=== PATIENT | male | born 1975 | race Caucasian/White ===

== ENCOUNTER 2021-11-25 07:44 | Day surgery (SDC) | payer BC ==
[~2021-11-25] VITALS: Ht 177.8 cm; Wt 93.3 kg
[2021-11-25] MEDS ORDERED: METF500 (08:09)
[2021-11-25] MEDS ORDERED: SITA25T2 (08:10)
[2021-11-25] MEDS ORDERED: EZALLOR SPRINKL10 MG (08:10)
[2021-11-25] MEDS ORDERED: Aspir 8181 MG (08:11)
[2021-11-25] MEDS ORDERED: FARXIGA10 MG (08:11)
--- NOTE | 2021-11-25 08:39 | NUR ---
11/25/21 0839 AGA KWON LIDOCAINE 2% WITH EPI 1:100,000 INJECTED INTO L HAND BY UZMA RAMIREZ AT BEGINNING OF CASE.
== END 2021-11-25 09:34 | disposition home or self-care (01) ==
LOC: ORSCSDS 07:44
PROVIDERS: Orthopaedic Surgery
PROC: 0LN80ZZ Release Left Hand Tendon, Open Approach (ICD-10-PCS; principal; 2021-11-25 08:45)
PROC: 01N50ZZ Release Median Nerve, Open Approach (ICD-10-PCS; 2021-11-25 08:45)
DX: G56.03 Carpal tunnel syndrome, bilateral upper limbs (principal); M65.332 Trigger finger, left middle finger; E11.9 Type 2 diabetes mellitus without complications; Z79.82 Long term (current) use of aspirin; Z79.84 Long term (current) use of oral hypoglycemic drugs; Z79.899 Other long term (current) drug therapy
CPT/HCPCS: 82947; J0690; J2250; J2405; J2704; J3010; J7120